=== PATIENT | male | born 1965 | race Caucasian/White ===

== ENCOUNTER 2018-06-08 05:29 | Day surgery (SDC) | payer MEDICAID ==
[2018-05-31 11:37] LABS: BASOPHILS # (AUTO) 0.1 X10'3 (0-0.2); BASOPHILS % (AUTO) 0.9 % (0-1); EOSINOPHILS # (AUTO) 0.3 X10'3 (0-0.9); EOSINOPHILS % (AUTO) 3.5 % (0-6); LYMPHOCYTES # (AUTO) 1.9 X10'3 (1.1-4.8); LYMPHOCYTES % (AUTO) 26.1 % (21-51); MEAN CORPUSCULAR HGB CONC 34.4 g/dL (33.0-36.5); MEAN CORPUSCULAR VOLUME 95.8 FL (78-98); MEAN PLATELET VOLUME 8.3 FL (7.4-10.4); MONOCYTES # (AUTO) 0.6 X10'3 (0-0.9); MONOCYTES % (AUTO) 8.7 % (2-12); NEUTROPHILS # (AUTO) 4.5 X10'3 (1.8-7.7); NEUTROPHILS % (AUTO) 60.8 % (42-75); PRE OP HEMATOCRIT 49.6 % (42.0-52.0); PRE OP HEMOGLOBIN 17.1 g/dL (14.0-17.9); PRE OP PLATELET COUNT 227 X10'3 (140-440); RED BLOOD COUNT 5.18 X10'6 (4.70-6.10); RED CELL DISTRIBUTION WIDTH 13.1 % (11.5-14.5)
[2018-05-31 11:52] LABS: ALBUMIN 4.1 G/DL (3.4-5.0); ALBUMIN/GLOBULIN RATIO 1.2 (1.1-1.5); ALKALINE PHOSPHATASE 91 IU/L (46-116); BLOOD UREA NITROGEN 12 MG/DL (7-18); BUN/CREATININE RATIO 10.6 (5.4-32.0); CALCIUM 8.6 MG/DL (8.5-10.1); CHLORIDE 105 MMOL/L (99-107); CREATININE 1.13 MG/DL (0.60-1.10); PRE OP ALT 32 U/L (30-65); PRE OP ANION GAP 8 (8-16); PRE OP AST 19 U/L (10-37); PRE OP BILIRUB, TOTAL 0.6 MG/DL (0.0-1.0); PRE OP GLUCOSE 95 MG/DL (70-104); PRE OP POTASSIUM 4.2 MMOL/L (3.4-5.1); PRE OP PROTIME 10.4 SECONDS (9.0-12.0); PRE OP SODIUM 141 MMOL/L (135-145); TOTAL CARBON DIOXIDE 27.9 MMOL/L (24-32); TOTAL PROTEIN 7.4 G/DL (6.4-8.2); eGFR 68 ML/MIN
[2018-05-31 11:57] LABS: HEMOGLOBIN A1C 5.9 % (4.5-6.2)
[~2018-06-08] VITALS: Ht 175.3 cm; Wt 88.2 kg
[2018-06-08] VITALS (7 sets, daily range): BP systolic 110–157; BP diastolic 69–97
[~2018-06-08 05:29] MED LIST: ACET-1008 PO; OMEP40CA37 PO; ringers solution, lacted 1,000 ML IV SCH
[2018-06-08] MEDS ORDERED: famotidine 20mg tablet PO ONE (05:30)
[2018-06-08] MEDS ORDERED: ceFAZolin inj. 2,000 MG in dextrose 5%-water 50ml 50 ML IV ONE (05:30)
[2018-06-08] MEDS ORDERED: VANCOMYCIN INJ 1000 MG in NORMAL SALINE 250ml IV.SOLN IV ONE (05:30)
[2018-06-08] MEDS ORDERED: BUPIVAcaine/PF 2.5mg/ml (0.25%) 10ml vial ONE ×3 (07:02→09:09)
[2018-06-08] MEDS ORDERED: cloNIDine hcl/PF 100mcg/ml inj ONE (07:18)
[2018-06-08] MEDS ORDERED: ROPIVAcaine 0.5% (5mg/ml) 30ml vial ONE (07:21)
[2018-06-08] MEDS ORDERED: fentaNYL/PF 50MCG/1 ML 2ML syringe ONE ×2 (07:21→08:08)
[2018-06-08] MEDS ORDERED: MIDAZolam 5mg/5ml vial ONE (07:21)
[2018-06-08] MEDS ORDERED: glycopyrrolate 0.2mg/ml inj ONE (09:10)
[2018-06-08] MEDS ORDERED: LIDOcaine 2% (20mg/ml) 5ml vial ONE (09:10)
[2018-06-08] MEDS ORDERED: propofol inj 20 ML IV ONE (09:10)
[2018-06-08] MEDS ORDERED: dexamethasone sod phosphate 4mg/ml inj. ONE (09:10)
[2018-06-08] MEDS ORDERED: rocuronium 10mg/ml inj IV ONE (09:10)
[2018-06-08] MEDS ORDERED: albuterol 60 PUFF/8GM Inhaler IH ONE (09:10)
[2018-06-08] MEDS ORDERED: neostigmine methylsulfate 1 MG/ML 10ml vial ONE (09:10)
[2018-06-08] MEDS ORDERED: meperidine/PF 50mg/ml syringe ONE (09:18)
--- NOTE | 2018-06-08 09:19 | NUR ---
Received from OR via [facility]IN , accompanied by Anesthesiologist KM and report given by Anesthesiolgist. PATIENT WITH 20G PIV IN LEFT UE. PATIENT WITH SLING TO RIGHT UE. PATIENT WITH 10L MASK ON WITH 100% SATURATIONS. MOVES FINGERS, + CAP REFILL. Addendum: 06/08/18 at 0932 by Migue Cardona RN, RN Amended: Links added.
[2018-06-08] MEDS ORDERED: ringers solution, lacted 1,000 ML IV SCH (09:28)
[2018-06-08] MEDS ORDERED: proCHLORperazine 10 MG/2 ml inj IV PRN (09:30)
[2018-06-08] MEDS ORDERED: meperidine/PF 25mg/ml syringe IV PRN ×3 (09:30)
[2018-06-08] MEDS ORDERED: morphine 4 MG/ML inj SYRINge IV PRN ×2 (09:30)
[2018-06-08] MEDS ORDERED: ondansetron/PF 4mg/2ml inj IV PRN (09:30)
--- NOTE | 2018-06-08 10:09 | NUR ---
ALL DC CRITERIA HAS BEEN MET. IV TAKEN OUT WITHOUT COMPLICATIONS. ALL INSTRUCTIONS COVERED AND ALL QUESTIONS ANSWERED. DRESSINGS CDI. OUT VIA WHEELCHAIR TO PERSONAL VEHICLE WHERE PATIENT WAS SECURED IN AND DRIVEN HOME BY FAMILY. Addendum: 06/08/18 at 1327 by Migue Cardona RN, RN Amended: Links added.
== END 2018-06-08 10:09 | disposition home or self-care (01) ==
LOC: PAS 05:29
PROVIDERS: ATTEND Orthopaedic Surgery
DX: M65.341 Trigger finger, right ring finger (principal); M75.41 Impingement syndrome of right shoulder; M19.011 Primary osteoarthritis, right shoulder; S56.115A Strain of flexor muscle, fascia and tendon of right ring finger at forearm level, initial encounter; M94.211 Chondromalacia, right shoulder; M65.811 Other synovitis and tenosynovitis, right shoulder; M75.51 Bursitis of right shoulder; K21.9 Gastro-esophageal reflux disease without esophagitis; I27.89 Other specified pulmonary heart diseases; M19.071 Primary osteoarthritis, right ankle and foot; E11.59 Type 2 diabetes mellitus with other circulatory complications; M16.12 Unilateral primary osteoarthritis, left hip; M17.12 Unilateral primary osteoarthritis, left knee; Z91.013 Allergy to seafood; Z88.3 Allergy status to other anti-infective agents; Z88.6 Allergy status to analgesic agent; Z86.14 Personal history of Methicillin resistant Staphylococcus aureus infection; Z79.891 Long term (current) use of opiate analgesic; Z79.899 Other long term (current) drug therapy; Z98.890 Other specified postprocedural states; Z82.49 Family history of ischemic heart disease and other diseases of the circulatory system; Z80.9 Family history of malignant neoplasm, unspecified; Z82.69 Family history of other diseases of the musculoskeletal system and connective tissue; X58.XXXA Exposure to other specified factors, initial encounter; Y93.89 Activity, other specified; Y92.89 Other specified places as the place of occurrence of the external cause; Y99.8 Other external cause status
CPT/HCPCS: 26055; 26356; 29823; 29824; 29826; 36415; 64450; 80053; 82948; 83036; 85025; 85610; 85730; A6222; A6449; A6455; J0690; J0735; J1100; J2001; J2175; J2250; J2704; J2710; J3010; J3370; J3490; J7060; J7120; A4565; A6250; A7000; J2795; J7030

== ENCOUNTER 2020-11-14 07:30 | Inpatient (IN) | payer MEDICAID ==
[~2020-11-14] VITALS: Ht 177.8 cm; Wt 90.3 kg
[2020-11-28] MEDS ORDERED: LISI-790 PO (14:37)
[2020-11-28] MEDS ORDERED: ATOR10TA87 PO (14:37)
[2020-11-28] MEDS ORDERED: CALC60OI4 TOP (14:37)
[2020-11-28] MEDS ORDERED: OMEP-50 PO (14:37)
[2020-11-28] MEDS ORDERED: TRIA15CR62 TOP (14:37)
[2020-11-28 14:39] LABS: BASOPHILS # (AUTO) 0.1 X10'3 (0-0.2); BASOPHILS % (AUTO) 1.2 % (0-1); EOSINOPHILS # (AUTO) 0.4 X10'3 (0-0.9); EOSINOPHILS % (AUTO) 5.6 % (0-6); LYMPHOCYTES # (AUTO) 1.7 X10'3 (1.1-4.8); LYMPHOCYTES % (AUTO) 25.2 % (21-51); MEAN CORPUSCULAR HEMOGLOBIN 32.9 PG (27.0-31.0); MEAN CORPUSCULAR HGB CONC 34.1 g/dL (33.0-36.5); MEAN CORPUSCULAR VOLUME 96.6 FL (78-98); MEAN PLATELET VOLUME 8.5 FL (7.4-10.4); MONOCYTES # (AUTO) 0.7 X10'3 (0-0.9); MONOCYTES % (AUTO) 9.9 % (2-12); NEUTROPHILS # (AUTO) 3.9 X10'3 (1.8-7.7); NEUTROPHILS % (AUTO) 58.1 % (42-75); PRE OP HEMATOCRIT 46.9 % (42.0-52.0); PRE OP PLATELET COUNT 225 X10'3 (140-440); RED BLOOD COUNT 4.86 X10'6 (4.70-6.10); RED CELL DISTRIBUTION WIDTH 12.5 % (11.5-14.5)
[2020-11-28 14:44] LABS: ALBUMIN 4.1 G/DL (3.4-5.0); ALBUMIN/GLOBULIN RATIO 1.1 (1.1-1.5); ALKALINE PHOSPHATASE 85 IU/L (46-116); BLOOD UREA NITROGEN 14 MG/DL (7-18); BUN/CREATININE RATIO 11.9 (5.4-32.0); CALCIUM 8.5 MG/DL (8.5-10.1); CHLORIDE 105 MMOL/L (99-107); CREATININE 1.18 MG/DL (0.60-1.10); PRE OP ALT 33 U/L (30-65); PRE OP ANION GAP 9 (8-16); PRE OP AST 20 U/L (10-37); PRE OP BILIRUB, TOTAL 0.4 MG/DL (0.0-1.0); PRE OP GLUCOSE 114 MG/DL (70-104); PRE OP POTASSIUM 4.1 MMOL/L (3.4-5.1); PRE OP SODIUM 142 MMOL/L (135-145); TOTAL CARBON DIOXIDE 28.3 MMOL/L (24-32); TOTAL PROTEIN 7.9 G/DL (6.4-8.2); eGFR 64 ML/MIN
[2020-12-05] VITALS (16 sets, daily range): BP systolic 103–152; BP diastolic 61–96
[2020-12-05] MEDS ORDERED: ringers solution, lacted 1,000 ML IV SCH ×2 (05:00→07:55)
[2020-12-05] MEDS ORDERED: vancomycin 1,500 MG in NS 300ml IV soln IV ONE (05:30)
[2020-12-05] MEDS ORDERED: cefazolin/dext.iso 2gm/100ml IV ONE (05:30)
[2020-12-05] MEDS ORDERED: famotidine 20mg tablet PO ONE (05:30)
[2020-12-05] MEDS ORDERED: LIDOcaine 1% (10mg/ml) 2ml vial ONE (05:47)
[2020-12-05] MEDS ORDERED: sevoflurane 250ml liquid IH ONE (07:04)
[2020-12-05] MEDS ORDERED: fentaNYL/PF 50MCG/1 ML 2ML syringe ONE ×2 (07:06→09:38)
[2020-12-05] MEDS ORDERED: midazolam 1 mg/ML 2ml injection ONE ×2 (07:06)
[2020-12-05] MEDS ORDERED: ROPIVAcaine 0.2%/PF PUMP/bolus 545 ML POPLITEAL SCH (07:55)
[2020-12-05] MEDS ORDERED: morphine 2 MG/ML inj. syringe IV PRN ×2 (07:55→11:10)
[2020-12-05] MEDS ORDERED: morphine 4 MG/ML inj SYRINge IV PRN (07:55)
[2020-12-05] MEDS ORDERED: meperidine/PF 25mg/ml syringe IV PRN ×3 (07:55)
[2020-12-05] MEDS ORDERED: proCHLORperazine 10 MG/2 ml inj IV PRN (07:55)
[2020-12-05] MEDS ORDERED: ROPIVAcaine 0.2% (10 MG/5 ML) BOLUS INJECTION POPLITEAL PRN (07:55)
[2020-12-05] MEDS ORDERED: ondansetron/PF 4mg/2ml inj IV PRN ×2 (07:55→11:10)
[2020-12-05] MEDS ORDERED: bacitracin 15gm ointment TP ONE (08:30)
[2020-12-05] MEDS ORDERED: acetaminophen 1,000mg/100ml IV 100 ML IV ONE (10:51)
[2020-12-05] MEDS ORDERED: neostigmine methylsulfate 1 MG/ML 10ml vial ONE (10:51)
[2020-12-05] MEDS ORDERED: rocuronium 10mg/ml inj IV ONE (10:51)
[2020-12-05] MEDS ORDERED: propofol inj 20 ML IV ONE (10:51)
[2020-12-05] MEDS ORDERED: dexamethasone sod phosphate 4mg/ml inj. ONE (10:51)
[2020-12-05] MEDS ORDERED: ROPIVAcaine 0.5% (5mg/ml) 30ml vial ONE (10:51)
[2020-12-05] MEDS ORDERED: glycopyrrolate 0.2mg/ml inj ONE (10:51)
[2020-12-05] MEDS ORDERED: ondansetron/PF 4mg/2ml inj ONE (10:51)
[2020-12-05] MEDS ORDERED: LIDOcaine 1%/PF 5ML 10 MG/ML VIAL ONE (10:51)
--- NOTE | 2020-12-05 10:54 | NUR ---
Received from OR via ORTHO BED , accompanied by Anesthesiologist KM and report given by Anesthesiolgist. PATIENT WITH 20G PIV IN LEFT UE RUNNING AT 100. DENIES PAIN. RIGTH FOOT IN SPOLINT THAT IS CDI. TOES PWD, + CAP REFILL. SCDS DONNED. ON Q PUMP CONNECTED TO RIGHT THIGH CATHETER. FOOT OF BED GATCHED. DENIES PAIN AT THIS TIME Addendum: 12/05/20 at 1116 by Migue Cardona RN, RN Amended: Links added.
[2020-12-05] MEDS ORDERED: mag hydrox/Alum hydrox/simeth 30ml oral suspension PO PRN (11:10)
[2020-12-05] MEDS ORDERED: HYDROcodone/acetaminophen 10/325mg tab PO PRN (11:10)
[2020-12-05] MEDS ORDERED: acetaminophen 325mg tablet PO PRN (11:10)
[2020-12-05] MEDS ORDERED: magnesium hydroxide 30ml (MOM) UD suspension PO PRN (11:10)
--- NOTE | 2020-12-05 11:40 | NUR ---
Patient in room PAS IN 900. I have received report from Migue HERCULES and had the opportunity to ask questions and assume patient care.
--- NOTE | 2020-12-05 11:54 | NUR ---
PATIENT HAS MET ALL CRITERIA FOR TRANSFER TO THE SURGICAL/[facility]/PCU/ORTHO/ICU FLOOR. VSS. DRESSINGS INTACT. BED LOW, CALL LIGHT PRESENT AND 2 RAILS UP. RN PRESENT TO ACCEPT CARE OF PATIENT AND REPORT HAS BEEN CALLED. ALL QUESTIONS ANSWERED TO ACCEPTING DELISA SLADE AND BIMAL HERCULES'S. BOTH AT BEDSIDE TO ASSESS AND ACCEPT CARE OF PATIENT. Addendum: 12/05/20 at 1157 by Migue Barber - DELISA RN Amended: Links added.
[2020-12-05] MEDS ORDERED: aspirin 81mg tab.chew PO ONE (13:10)
[2020-12-05] MEDS ORDERED: pantoprazole 40mg Tablet.DR PO ONE (13:15)
[2020-12-05] MEDS: normal saline 1000ml 1,000 ML IV SCH (14:20)
--- NOTE | 2020-12-05 15:22 | NUR ---
Called dr Graham about pt being prescribed aspirin Post Op but pt is allergic, left a message asking if he would like something else to be given.
[2020-12-05] MEDS: ceFAZolin inj. 1,000 MG in dextrose 5%-water 50ml 50 ML IV SCH (16:20)
[2020-12-05] MEDS ORDERED: vancomycin/NS 1 GM ADD-VANTAGE 250 ML IV ONE (18:00)
--- NOTE | 2020-12-05 18:06 | NUR ---
Problems reprioritized. Patient report given, questions answered & plan of care reviewed with Gina HERCULES.
[2020-12-05] MEDS: docusate sod 100mg capsule PO SCH (20:02)
[2020-12-05] MEDS ORDERED: glucagon, human recombinant 1mg kit SUBCUT PRN (23:30)
[2020-12-05] MEDS ORDERED: dextrose 50%-water 50ml dispensing syringe IV PRN ×2 (23:30)
[2020-12-05] MEDS ORDERED: insulin Lispro (HumaLOG) vial - multi-dose SQ SCH (23:30)
[2020-12-05] MEDS ORDERED: MESSAGE TO PHARMACY PO ONE (23:30)
[2020-12-05] MEDS ORDERED: dextrose ORAL solution 15 GM/59 ML bottle PO PRN ×2 (23:30)
[2020-12-06] MEDS: ceFAZolin inj. 1,000 MG in dextrose 5%-water 50ml 50 ML IV SCH (00:10)
[2020-12-06 02:00] VITALS: BP 144/72
[2020-12-06 06:13] LABS: BASOPHILS % (AUTO) 0.3 % (0-1); EOSINOPHILS % (AUTO) 0.1 % (0-6); HEMOGLOBIN 14.4 g/dl (14.0-17.9); LYMPHOCYTES # (AUTO) 1.2 X10'3 (1.1-4.8); LYMPHOCYTES % (AUTO) 9.1 % (21-51); MEAN CORPUSCULAR HEMOGLOBIN 32.9 PG (27.0-31.0); MEAN CORPUSCULAR HGB CONC 34.3 g/dL (33.0-36.5); MEAN CORPUSCULAR VOLUME 95.7 FL (78-98); MEAN PLATELET VOLUME 8.9 FL (7.4-10.4); MONOCYTES # (AUTO) 1.2 X10'3 (0-0.9); MONOCYTES % (AUTO) 8.5 % (2-12); NEUTROPHILS # (AUTO) 11.2 X10'3 (1.8-7.7); PLATELET COUNT 197 X10'3 (140-440); RED BLOOD COUNT 4.39 X10'6 (4.70-6.10); RED CELL DISTRIBUTION WIDTH 12.6 % (11.5-14.5); WHITE BLOOD COUNT 13.6 X10'3 (4.5-11.0)
[2020-12-06 06:23] LABS: ANION GAP 9 (8-16); CHLORIDE 110 MMOL/L (99-107); POTASSIUM 3.9 MMOL/L (3.5-5.1); SODIUM 143 MMOL/L (135-145); TOTAL CARBON DIOXIDE 24.2 MMOL/L (24-32)
--- NOTE | 2020-12-06 06:25 | NUR ---
Problems reprioritized. Patient report given, questions answered & plan of care reviewed with Silvia HERCULES.
--- NOTE | 2020-12-06 06:45 | NUR ---
Patient in room ORTHO 4013. I have received report from rafa cho and had the opportunity to ask questions and assume patient care.
[2020-12-06 08:00] VITALS: BP_SYST 133
[2020-12-06] MEDS ORDERED: pantoprazole 40mg Tablet.DR PO SCH (08:00)
[2020-12-06] MEDS ORDERED: lisinopril 5mg tablet PO SCH (08:00)
[2020-12-06] MEDS ORDERED: atorvastatin 10mg tablet PO SCH (08:00)
[2020-12-06] MEDS ORDERED: aspirin 81mg tab.chew PO SCH (08:30)
[2020-12-06] MEDS: docusate sod 100mg capsule PO SCH (08:34)
[2020-12-06] MEDS: normal saline 1000ml 1,000 ML IV SCH (09:10)
--- NOTE | 2020-12-06 10:36 | NUR ---
PAGER ID: [phone] MESSAGE: laureano cho [phone] re: Omer Walton [id number]. Pt cleared with PT. Pt would like to discharge. Thank you.
--- NOTE | 2020-12-06 12:55 | NUR ---
Pt discharged at 1240. Belongings sent with pt. IV removed tip intact, no complications. Education provided regarding post op care and follow up instructions. Pt discharged with significant other in private vehicle in stable condition
[2020-12-06] MEDS ORDERED: insulin glargine (Lantus) pen - multi-dose SQ SCH (21:00)
== END 2020-12-06 12:40 | disposition home or self-care (01) | DRG 313 ==
LOC: PAS IN 12-05 05:09 → ORTHO 4S 12-05 11:57
PROVIDERS: ADMIT Podiatrist Foot & Ankle Surgery; ATTEND Internal Medicine
PROC: 0SPF0JZ Removal of Synthetic Substitute from Right Ankle Joint, Open Approach (ICD-10-PCS; 2020-12-05)
PROC: 0SUF0JZ Supplement Right Ankle Joint with Synthetic Substitute, Open Approach (ICD-10-PCS; 2020-12-05)
PROC: 0L8N0ZZ Division of Right Lower Leg Tendon, Open Approach (ICD-10-PCS; 2020-12-05)
PROC: 3E0T3BZ Introduction of Anesthetic Agent into Peripheral Nerves and Plexi, Percutaneous Approach (ICD-10-PCS; 2020-12-05)
PROC: 0SGF0KZ Fusion of Right Ankle Joint with Nonautologous Tissue Substitute, Open Approach (ICD-10-PCS; principal; 2020-12-05 07:04)
DX: M19.071 Primary osteoarthritis, right ankle and foot (principal); E11.9 Type 2 diabetes mellitus without complications; E78.00 Pure hypercholesterolemia, unspecified; E78.5 Hyperlipidemia, unspecified; I10 Essential (primary) hypertension; Z87.891 Personal history of nicotine dependence; Z88.6 Allergy status to analgesic agent; Z91.041 Radiographic dye allergy status; Z91.013 Allergy to seafood; Z79.899 Other long term (current) drug therapy
CPT/HCPCS: 36415; 71046; 73620; 76000; 80051; 80053; 83036; 85025; 87081; 97116; 97161; 97530; G0378; J0131; J0690; J1100; J1815; J2001; J2250; J2405; J2704; J2710; J2795; J3010; J3370; J3490; J7030; J7040; J7060; J7120

== ENCOUNTER 2021-06-05 05:28 | Day surgery (SDC) | payer MEDICAID ==
[2021-05-27 15:01] LABS: BASOPHILS # (AUTO) 0.1 X10'3 (0-0.2); EOSINOPHILS # (AUTO) 0.2 X10'3 (0-0.9); EOSINOPHILS % (AUTO) 3.2 % (0-6); LYMPHOCYTES # (AUTO) 1.6 X10'3 (1.1-4.8); LYMPHOCYTES % (AUTO) 25.8 % (21-51); MEAN CORPUSCULAR HEMOGLOBIN 32.2 PG (27.0-31.0); MEAN CORPUSCULAR HGB CONC 34.1 g/dL (33.0-36.5); MEAN CORPUSCULAR VOLUME 94.6 FL (78-98); MEAN PLATELET VOLUME 8.5 FL (7.4-10.4); MONOCYTES # (AUTO) 0.5 X10'3 (0-0.9); MONOCYTES % (AUTO) 8.5 % (2-12); NEUTROPHILS # (AUTO) 3.8 X10'3 (1.8-7.7); NEUTROPHILS % (AUTO) 61.5 % (42-75); PRE OP HEMOGLOBIN 15.7 g/dL (14.0-17.9); PRE OP PLATELET COUNT 227 X10'3 (140-440); RED BLOOD COUNT 4.87 X10'6 (4.70-6.10); RED CELL DISTRIBUTION WIDTH 12.9 % (11.5-14.5)
[2021-05-27 15:34] LABS: ALBUMIN 4.1 G/DL (3.4-5.0); ALBUMIN/GLOBULIN RATIO 1.3 (1.1-1.5); ALKALINE PHOSPHATASE 82 IU/L (46-116); BLOOD UREA NITROGEN 13 MG/DL (7-18); BUN/CREATININE RATIO 11.2 (5.4-32.0); CALCIUM 8.4 MG/DL (8.5-10.1); CHLORIDE 107 MMOL/L (99-107); CREATININE 1.16 MG/DL (0.60-1.10); PRE OP ALT 38 U/L (30-65); PRE OP ANION GAP 8 (8-16); PRE OP AST 25 U/L (10-37); PRE OP BILIRUB, TOTAL 0.4 MG/DL (0.0-1.0); PRE OP GLUCOSE 126 MG/DL (70-104); PRE OP POTASSIUM 4.1 MMOL/L (3.4-5.1); PRE OP SODIUM 141 MMOL/L (135-145); TOTAL CARBON DIOXIDE 26.3 MMOL/L (24-32); TOTAL PROTEIN 7.2 G/DL (6.4-8.2); eGFR 65 ML/MIN
[2021-06-05] VITALS (8 sets, daily range): BP systolic 132–162; BP diastolic 78–95
[~2021-06-05] VITALS: Ht 177.8 cm; Wt 92.2 kg
[~2021-06-05 05:28] MED LIST changes: -ACET-1008 PO; +ATOR10TA87 PO; +LISI10TA27 PO; +OMEP20CA16 PO; -OMEP40CA37 PO
[2021-06-05] MEDS ORDERED: famotidine 20mg tablet PO ONE (05:30)
[2021-06-05] MEDS ORDERED: cefazolin/dext.iso 2gm/50ml IV ONE (05:30)
[2021-06-05] MEDS ORDERED: LIDOcaine 2% (20mg/ml) 5ml vial ONE (07:15)
[2021-06-05] MEDS ORDERED: MIDAZolam 1 MG/ML 5ML VIAL ONE (07:15)
[2021-06-05] MEDS ORDERED: propofol inj 20 ML IV ONE (07:15)
[2021-06-05] MEDS ORDERED: fentaNYL/PF 50MCG/1 ML 2ML syringe ONE (07:15)
[2021-06-05] MEDS ORDERED: ondansetron/PF 4mg/2ml inj ONE (07:20)
[2021-06-05] MEDS ORDERED: dexamethasone sod phosphate 10mg/ml inj ONE (07:20)
[2021-06-05] MEDS ORDERED: sevoflurane 250ml liquid IH ONE (07:20)
[2021-06-05] MEDS ORDERED: proCHLORperazine 10 MG/2 ml inj IV PRN (08:50)
[2021-06-05] MEDS ORDERED: ROPIVAcaine 0.2% (10 MG/5 ML) BOLUS INJECTION INTERSCALE PRN (08:50)
[2021-06-05] MEDS ORDERED: ondansetron/PF 4mg/2ml inj IV PRN (08:50)
[2021-06-05] MEDS ORDERED: ROPIVAcaine 0.2%/PF PUMP/bolus 545 ML INTERSCALE SCH (08:50)
[2021-06-05] MEDS ORDERED: morphine 2 MG/ML inj. syringe IV PRN (08:50)
[2021-06-05] MEDS ORDERED: meperidine/PF 25mg/ml syringe IV PRN ×3 (08:50)
[2021-06-05] MEDS ORDERED: morphine 4 MG/ML inj SYRINge IV PRN (08:50)
[2021-06-05] MEDS ORDERED: ringers solution, lacted 1,000 ML IV SCH (08:50)
--- NOTE | 2021-06-05 09:07 | NUR ---
Received from OR via BED. LEFT SHOULDER DSG CDI, SHOULDER WRAP WITH POWDER PACK IN PLACE, 20G TO RIGHT AC. PT DEINES PAIN AT THIS TIME , accompanied by Anesthesiologist DR MENDOZA AND PHARMACOGNOSY TEACHERDELISA FREEDMAN REPORT RECIEVED Addendum: 06/05/21 at 0997 by Stella Prieto RN Amended: Links added.
[2021-06-05] MEDS ORDERED: HYDROcodone/acetaminophen 10/325mg tab PO PRN (09:10)
--- NOTE | 2021-06-05 10:27 | NUR ---
D/C HOME: ALL DISCHARGE CRITERIA HAS BEEN MET. VSS, PAIN AT A TOLERABLE LEVEL, VOIDING AND ABLE TO SAFELY AMBULATE AND TRANSFER SELF. IV TAKEN OUT WITHOUT COMPLICATIONS. ALL DISCHARGE INSTRUCTIONS COVERED WITH PATIENT AND ALL QUESTIONS ANSWERED, COPY OF DC INSTRUCTIONS AND ON-Q D/C INSTRUCTION BOOKLET GIVEN TO PATIENT. PATIENT TAKEN OUT VIA WHEELCHAIR TO PERSONAL VEHICLE WHERE FAMILY DROVE PATIENT HOME. Addendum: 06/05/21 at 1103 by Stella Prieto RN Amended: Links added.
[2021-06-06] MEDS ORDERED: atorvastatin 10mg tablet PO SCH (08:00)
[2021-06-06] MEDS ORDERED: pantoprazole 40mg Tablet.DR PO SCH (08:00)
[2021-06-06] MEDS ORDERED: lisinopril 10 MG tablet PO SCH (08:00)
== END 2021-06-05 10:27 | disposition home or self-care (01) ==
LOC: PAS 05:28
PROVIDERS: ATTEND Orthopaedic Surgery
DX: M19.012 Primary osteoarthritis, left shoulder (principal); M75.42 Impingement syndrome of left shoulder; M75.52 Bursitis of left shoulder; G89.18 Other acute postprocedural pain; I10 Essential (primary) hypertension; K21.9 Gastro-esophageal reflux disease without esophagitis; M19.071 Primary osteoarthritis, right ankle and foot; M17.0 Bilateral primary osteoarthritis of knee; M16.12 Unilateral primary osteoarthritis, left hip; E11.59 Type 2 diabetes mellitus with other circulatory complications; J45.909 Unspecified asthma, uncomplicated; F41.9 Anxiety disorder, unspecified; G43.909 Migraine, unspecified, not intractable, without status migrainosus; Z91.013 Allergy to seafood; Z98.890 Other specified postprocedural states; Z87.891 Personal history of nicotine dependence; Z20.822 Contact with and (suspected) exposure to COVID-19; Z79.899 Other long term (current) drug therapy; Z88.8 Allergy status to other drugs, medicaments and biological substances; Z82.49 Family history of ischemic heart disease and other diseases of the circulatory system
CPT/HCPCS: 29824; 29826; 36415; 64416; 80053; 82948; 85025; 85651; 93005; J0690; J1100; J2250; J2405; J2704; J2795; J3010; J3490; J7120; U0003; U0005; Z7506; Z7508; Z7512; A4565; A4618; A6449; A7000